=== PATIENT | male | born 1995 | race African-American/Black ===

== ENCOUNTER 2019-12-31 13:11 | Emergency (ER) | payer OTHER ==
[2019-12-31 13:28] VITALS: TEMP 98.4; BMI 31.5
[2019-12-31] MEDS ORDERED: ONDANSETRON 8 MG TABLET (FP) PO ONE (14:04)
[2019-12-31] MEDS ORDERED: LOPERAMIDE HCL 2 MG CAPSULE PO ONE (14:07)
--- NOTE | 2019-12-31 14:10 | PDOC ---
History of Present Illness - General Chief Complaint: Vomiting/Diarrhea Stated Complaint: diarrhea/vomiting Time Seen by Provider: 12/31/19 13:16 History Source: Patient - History of Present Illness Initial Comments: Mr. Hinton is a 24 y/o man w/hx sickle cell trait p/w four days of ongoing N/V/D. He reports x3 nbnb vomiting as well as x3 non-bloody diarrhea yesterday. He denies any fevers, chills, sick contacts. He denies any street food or new foods outside his typical diet. He reports difficulty tolerating food po but has been tolerating small amounts of water. Past History - Past Medical History Allergies/Adverse Reactions: Allergies Allergy/AdvReac Type Severity Reaction Status Date / Time shellfish derived AdvReac Unknown Verified 01/21/20 15:26 Home Medications: Ambulatory Orders Loperamide HCl [Imodium -] 2 mg PO DAILY #7 capsule 12/31/19 Ondansetron [Zofran *Odt*] 8 mg SL TID #9 od.tablet 12/31/19 COPD: No Other medical history: pt denies - Psycho Social/Smoking Cessation Hx Smoking History: Never smoked Hx Alcohol Use: No Drug/Substance Use Hx: Yes (Marijuana) Review of Systems - Review of Systems Able to Perform ROS?: Yes Comments:: ROS: GENERAL/CONSTITUTIONAL: No fever or chills. No weakness. HEAD, EYES, EARS, NOSE AND THROAT: No change in vision. No ear pain or discharge. No sore throat. CARDIOVASCULAR: No chest pain or shortness of breath RESPIRATORY: No cough, wheezing, or hemoptysis. GASTROINTESTINAL: Nausea, vomiting, diarrhea. No constipation. GENITOURINARY: No dysuria, frequency, or change in urination. MUSCULOSKELETAL: No joint or muscle swelling or pain. No neck or back pain. SKIN: No rash NEUROLOGIC: No headache, vertigo, loss of consciousness, or change in strength/sensation. ENDOCRINE: No increased thirst. No abnormal weight change HEMATOLOGIC/LYMPHATIC: No anemia, easy bleeding, or history of blood clots. ALLERGIC/IMMUNOLOGIC: No hives or skin allergy. *Physical Exam - Vital Signs Last Vital Signs Temp Pulse Resp BP Pulse Ox 98.4 F 70 18 132/84 100 12/31/19 13:12 12/31/19 13:12 12/31/19 13:12 12/31/19 13:12 12/31/19 13:12 - Physical Exam PE: GENERAL: Awake, alert, and fully oriented, in no acute distress HEAD: No signs of trauma, normocephalic, atraumatic EYES: PERRLA, EOMI, sclera anicteric, conjunctiva clear ENT: Auricles normal inspection, hearing grossly normal, nares patent, oropharynx clear without exudates. Moist mucosa NECK: Normal ROM, supple, no lymphadenopathy, JVD, or masses LUNGS: No distress, speaks full sentences, clear to auscultation bilaterally HEART: Regular rate and rhythm, normal S1 and S2, no murmurs, rubs or gallops, peripheral pulses normal and equal bilaterally. ABDOMEN: Soft, nontender, normoactive bowel sounds. No guarding, no rebound. No masses EXTREMITIES : Normal inspection, Normal range of motion, no edema. No clubbing or cyanosis NEUROLOGICAL: Cranial nerves II through XII grossly intact. Normal speech, normal gait, no focal sensorimotor deficits SKIN: Warm, Dry, normal turgor, no rashes or lesions noted Medical Decision Making - Medical Decision Making 12/31/19 14:08 24M w/hx sickle cell trait p/w 4 days of nbnb N/V/D, unable to tolerate po at home, afebrile w/stable vitals. Ddx includes viral infection, bacterial less likely given short course without fever. Plan: Zofran Imodium Po challenge orthostatic vitals Dispo: Discharge 12/31/19 14:47 Po challenge in progress s/p medications 12/31/19 15:12 Orthostatics: 60 laying down, 75 standing 123/79 laying, 133/77 standing --- On reassessment, he reports feeling improved. Plan for discharge with imodium, zofran prescription, PCP follow up Discharge - Discharge Information Problems reviewed: Yes Clinical Impression/Diagnosis: Nausea & vomiting Qualifiers: Vomiting type: unspecified Vomiting Intractability: non-intractable Qualified Code(s): R11.2 - Nausea with vomiting, unspecified Diarrhea Qualifiers: Diarrhea type: unspecified type Qualified Code(s): R19.7 - Diarrhea, unspecified Condition: Fair Disposition: HOME - Admission No - Additional Discharge Information Prescriptions: Loperamide HCl [Imodium -] 2 mg PO DAILY #7 capsule Ondansetron [Zofran *Odt*] 8 mg SL TID #9 od.tablet - Follow up/Referral - Patient Discharge Instructions Patient Printed Discharge Instructions: DI for Diarrhea and Traveler's Diarrhea -- Adult, Nausea and Vomiting-Adult Additional Instructions: You were seen in the ER for nausea, vomiting, diarrhea and being unable to eat without vomiting. We gave you medication to help with these symptoms, and you were able to eat in the ER. We are prescribing you more doses of these medications to take at home. Your symptoms may be caused by a virus, in that case they should resolve over the next few days. For now maintain a liquid diet, and slowly progress to more solid foods. Please follow up with your primary care provider as soon as possible, in the next 7 days. If you do not have one, we are giving a referral to the [facility]. Please return to [facility] ER if you develop high fevers, intractable nausea and vomiting, weakness, chest pain, or trouble breathing. - Post Discharge Activity
[2019-12-31] MEDS ORDERED: LOPERAMIDE HCL 2 MG CAPSULE ONE (14:16)
[2019-12-31] MEDS ORDERED: ONDANSETRON *ODT* 4 MG TABLET ONE (14:16)
--- NOTE | 2019-12-31 14:18 | PDOC ---
Attending Attestation - Resident Resident Name: LeeanneElliot - ED Attending Attestation I have performed the following: I have examined & evaluated the patient, The case was reviewed & discussed with the resident, I agree w/resident's findings & plan, Exceptions are as noted - HPI HPI: 12/31/19 14:15 Healthy male with 4-day history of nausea vomiting and diarrhea. He has been able to tolerate small amounts of p.o. fluid, but any food intake precipitates vomiting and diarrhea. No lightheadedness, dizziness, abdominal pain, hematemesis, melena, bloody stool, fever or chills. - Physicial Exam PE: 12/31/19 14:16 PE: Afebrile, vital signs stable including orthostatics HEENT normal Neck supple without bruit mass or nodes Chest clear CV regular without murmur rub or gallop. No tachycardia Abdomen nondistended. Bowel sounds normal. Soft without mass tenderness organomegaly Adequate skin turgor, wet mucous membranes - Medical Decision Making 12/31/19 14:17 Assessment: Viral gastroenteritis, no acute abdominal pain, no sign of significant dehydration Plan: Antiemetic and antidiarrheal, p.o. hydration, observe. 12/31/19 15:11 Tolerating p.o. fluids and applesauce, no vomiting. Mild nausea, however, persists. Abdomen remains soft and nontender Discharged on clear liquids, Zofran, and Imodium. Return to ER if there is fever or abdominal pain. Otherwise follow-up primary physician. Fully ambulatory and in no severe distress at discharge to follow-up as directed
[2019-12-31] MEDS ORDERED: ONDANSETRON 4 MG TABLET PO ONE ×2 (14:19→14:20)
[2019-12-31] MEDS ORDERED: ONDANSETRON *ODT* 4 MG TABLET SL ONE (14:21)
[2019-12-31 15:17] VITALS: BP 129/77; PULSE 60
== END 2019-12-31 15:35 | disposition home or self-care (01) ==
LOC: FER 13:11
DX: R11.2 Nausea with vomiting, unspecified (principal); R19.7 Diarrhea, unspecified; Z91.013 Allergy to seafood
CPT/HCPCS: 99284-25; Q0162

== ENCOUNTER 2020-01-21 15:06 | Emergency (ER) | payer OTHER ==
[2020-01-21 15:29] VITALS: TEMP 97; BMI 28.7
--- NOTE | 2020-01-21 15:50 | PDOC ---
History of Present Illness - General Chief Complaint: Pain Stated Complaint: STOMACH/BACK PAIN Time Seen by Provider: 01/21/20 15:21 History Source: Patient - History of Present Illness Timing/Duration: reports: other Abdominal Pain Onset Location: reports: flank Pain Radiation: reports: back Past History - Past Medical History Allergies/Adverse Reactions: Allergies Allergy/AdvReac Type Severity Reaction Status Date / Time shellfish derived AdvReac Unknown Verified 01/21/20 15:26 Home Medications: Ambulatory Orders Loperamide HCl [Imodium -] 2 mg PO DAILY #7 capsule 12/31/19 Ondansetron [Zofran *Odt*] 8 mg SL TID #9 od.tablet 12/31/19 COPD: No - Psycho Social/Smoking Cessation Hx Smoking History: Never smoked Information on smoking cessation initiated: No Hx Alcohol Use: No Drug/Substance Use Hx: No Review of Systems - Review of Systems Constitutional: No: Chills, Fever ABD/GI: No: Blood Streaked Bowels, Constipated, Diarrhea, Nausea, Rectal Bleeding, Vomiting, Tarry Stools : Yes: Flank Pain. No: Burning, Dysuria, Discharge, Hematuria *Physical Exam - Vital Signs Last Vital Signs Temp Pulse Resp BP Pulse Ox 97 F L 80 16 132/67 98 01/21/20 15:26 01/21/20 15:26 01/21/20 15:26 01/21/20 15:26 01/21/20 15:26 - Physical Exam General Appearance: Yes: Appropriately Dressed. No: Apparent Distress HEENT: positive: Normal Voice Neck: positive: Supple Respiratory/Chest: positive: Lungs Clear, Normal Breath Sounds. negative: Respiratory Distress Cardiovascular: positive: Regular Rate, S1, S2 Gastrointestinal/Abdominal: positive: Soft. negative: Tender Musculoskeletal: negative: CVA Tenderness, Vertebral Tenderness Extremity: positive: Normal Inspection Integumentary: positive: Dry, Warm Neurologic: positive: Fully Oriented, Alert, Normal Mood/Affect ED Treatment Course - LABORATORY CBC & Chemistry Diagram: 01/21/20 16:19 01/21/20 16:19 Medical Decision Making - Medical Decision Making 01/21/20 15:49 24-year-old male, no pmhx, here w/ LUQ pain radiating to back x2 days, 6 out of 10, sharp and constant and possibly worse w/ po intake. No nausea, vomiting dysuria, hematuria, change in bowel movements fever or chills. No history of similar pain. No trauma or other obvious inciting factors. Denies excessive ETOH or NSAID use see exam L flank pain Low suspicion for renal stone, ? gastritis given worsening w/ po intake, unlikely biliary, uti/pyelo and NT over mcburneys Exam unremarkable No sig pain in facility -Labs/ua -Renal US -Anticipate dc w/ PMD f/u 01/21/20 17:51 Labs, UA and ultrasound unremarkable. Will dc to take Tylenol Motrin for pain and follow-up with PMD Discharge - Discharge Information Problems reviewed: Yes Clinical Impression/Diagnosis: Left flank pain Disposition: HOME - Follow up/Referral - Patient Discharge Instructions Additional Instructions: The cause of your pain is unclear at this time as your labs and ultrasound were normal Please follow-up with your PMD if pain persists - Post Discharge Activity
[2020-01-21 16:37] LABS: BASO % 0.5 % (0-2.0); EOS % 2.6 % (0-4.5); HEMATOCRIT 47.1 % (35.4-49); HEMOGLOBIN 15.9 GM/dL (11.7-16.9); MCHC 33.8 g/dl (32.0-35.9); MEAN CELL VOLUME 91.7 fl (80-96); MEAN PLT VOLUME 10.3 fl (7.5-11.1); MONO % 9.4 % (3.8-10.2); NEUT % 57.5 % (42.8-82.8); PLATELET COUNT 162 K/MM3 (134-434); RBC 5.13 M/mm3 (4.00-5.60); WHITE BLOOD COUNT 4.8 K/mm3 (4.0-10.0)
[2020-01-21 16:44] VITALS: BP 162/89; PULSE 84
[2020-01-21 17:07] LABS: ALBUMIN 4.4 g/dl (3.4-5.0); BILIRUBIN,TOTAL 1.6 mg/dL (0.2-1); BLOOD UREA NITROGEN 12.4 mg/dL (7-18); CALCIUM 9.7 mg/dL (8.5-10.1); CREATININE 1.2 mg/dL (0.55-1.3); POTASSIUM 3.8 mmol/L (3.5-5.1); TOT PROT 7.8 g/dl (6.4-8.2)
[2020-01-21 17:43] LABS: EPI CELLS 4.8 /HPF (0-5/HPF); HYALINE CASTS 9 /lpf (0-8); PH,URINE 5.5 (5.0-8.0); URINE APPEARANCE CLEAR; URINE BACTERIA 5.7 /hpf (NEGATIVE); URINE BILIRUBIN NEGATIVE (NEGATIVE); URINE COLOR YELLOW; URINE GLUCOSE (UA) NEGATIVE (NEGATIVE); URINE KETONE NEGATIVE (NEGATIVE); URINE LEUK ESTERASE 2+ (NEGATIVE); URINE NITRITE NEGATIVE (NEGATIVE); URINE PROTEIN NEGATIVE (NEGATIVE); URINE RBC 1 /hpf (0-4); URINE WBC 84 /hpf (0-5)
== END 2020-01-21 18:03 | disposition home or self-care (01) ==
LOC: JER 15:06
DX: R10.12 Left upper quadrant pain (principal); Z91.013 Allergy to seafood
CPT/HCPCS: 36415; 76775-TC; 80053; 81003; 83690; 85025; 99284-25